=== PATIENT | female | born 1980 | race Hispanic/Latino ===

== ENCOUNTER 2023-07-27 18:39 | Emergency (ER) | payer MEDICAID, OTHER, SELFPAY ==
[2023-07-27] MEDS ORDERED: Racepinephrine 2.25% 0.5 ML NEB ONE (18:45)
[2023-07-27 19:15] LABS: #Eosinphils 0.2 thou/uL (0.0-0.7); #Monocytes 0.9 thou/uL (0.11-0.59); %Basophils 0.4 % (0.0-1.0); %Eosinophils 2.1 % (0.0-10.0); %Lymphocytes 45.7 % (21.0-51.0); %Monocytes 7.7 % (0.0-10.0); %Neutrophils 43.8 % (42.0-75.0); Hematocrit 38.8 % (36.0-47.0); Hemoglobin 12.1 g/dL (12.0-16.0); Mean Corpuscular HGB CONC 31.2 g/dL (32.0-36.0); Mean Corpuscular Hemoglobin 22.9 pg (27.0-31.0); Mean Corpuscular Volume 73.5 fl (78.0-98.0); Platelet Count 589 10x3/uL (130-400); Red Blood Cell (RBC) Count 5.28 mill/uL (4.20-5.40); White Blood Cell (WBC) Count 11.3 10x3/uL (4.8-10.8)
[2023-07-27 19:42] LABS: ALT (SGPT) 12 U/L (8-55); AST (SGOT) 13 U/L (5-34); Albumin 4.1 g/dL (3.5-5.0); Alkaline Phosphatase 79 U/L (40-110); Anion Gap 18 mmol/L (10-20); BUN (Urea Nitrogen) 16 mg/dL (7.0-18.7); Bilirubin, Total 0.4 mg/dL (0.2-1.2); Calc. Creatinine Clearance 0 mL/min (70-130); Calcium 9.1 mg/dL (7.8-10.44); Carbon Dioxide 20 mmol/L (22-29); Chloride 106 mmol/L (98-107); Estimated GFR 81; Globulin 2.4 g/dL (2.4-3.5); Glucose 162 mg/dL (70-105); Magnesium 1.8 mg/dL (1.6-2.6); Potassium 3.6 mmol/L (3.5-5.1); Protein, Total 6.5 g/dL (6.0-8.3); Sodium 140 mmol/L (136-145)
[2023-07-27 19:48] LABS: Troponin I 0.033 ng/mL (< 0.028)
[2023-07-27 19:54] LABS: Anisocytosis MODERATE=16-30 cells HPF (0-5); CellaVision Operator ID LAB.JMM; Ovalocytes SLIGHT = 2-5 cells HPF (0-1); Platelet Adequacy Comment Platelets Normal; Polychromasia SLIGHT = 2-3 cells HPF (0-2)
[2023-07-27] MEDS ORDERED: Dexamethasone 10 MG/ML VIAL ONE (20:14)
[2023-07-27] MEDS ORDERED: Famotidine/PF 20 mg/2ml Vial ONE (20:15)
== END 2023-07-27 21:22 | disposition home or self-care (01) ==
LOC: ERS 18:39 → EDBD 18:39 → ERS 21:22
DX: T78.2XXA Anaphylactic shock, unspecified, initial encounter (principal); I21.4 Non-ST elevation (NSTEMI) myocardial infarction; F14.10 Cocaine abuse, uncomplicated
CPT/HCPCS: 71045; 80053; 83735; 84484; 85025; 93005; 94640; 94760; 96374; 96375; J1100; S0028